=== PATIENT | male | born 1980 | race Two or more races ===

== ENCOUNTER 2023-09-11 19:31 | Inpatient (IN) | payer BC ==
[~2023-09-11] VITALS: Ht 170.2 cm; Wt 110.0 kg
[2023-09-11 20:03] LABS: BASOPHILS % (AUTO) 0.6 % (0-1); EOSINOPHILS # (AUTO) 0.1 X10'3 (0-0.9); EOSINOPHILS % (AUTO) 1.2 % (0-6); HEMATOCRIT 44.6 % (42.0-52.0); HEMOGLOBIN 15.9 g/dl (14.0-17.9); LYMPHOCYTES % (AUTO) 35.3 % (21-51); MEAN CORPUSCULAR HEMOGLOBIN 32.3 PG (27.0-31.0); MEAN CORPUSCULAR HGB CONC 35.6 g/dL (33.0-36.5); MEAN CORPUSCULAR VOLUME 90.9 FL (78-98); MEAN PLATELET VOLUME 7.6 FL (7.4-10.4); MONOCYTES # (AUTO) 0.6 X10'3 (0-0.9); NEUTROPHILS # (AUTO) 4.7 X10'3 (1.8-7.7); NEUTROPHILS % (AUTO) 55.9 % (42-75); PLATELET COUNT 219 X10'3 (140-440); RED BLOOD COUNT 4.91 X10'6 (4.70-6.10); RED CELL DISTRIBUTION WIDTH 13.8 % (11.5-14.5); WHITE BLOOD COUNT 8.4 X10'3 (4.5-11.0)
[2023-09-11 20:20] LABS: ALANINE AMINOTRANSFERASE 47 U/L (12-78); ALBUMIN 3.9 G/DL (3.4-5.0); ALKALINE PHOSPHATASE 108 IU/L (46-116); ANION GAP 8 (8-16); ASPARTATE AMINO TRANSFERASE 19 U/L (10-37); BILIRUBIN,TOTAL 0.4 MG/DL (0.1-1.0); BLOOD UREA NITROGEN 9 MG/DL (7-18); BUN/CREATININE RATIO 10.5 (10.0-20.0); CALCIUM 8.7 MG/DL (8.5-10.1); CHLORIDE 103 MMOL/L (99-107); CREATININE 0.86 MG/DL (0.60-1.10); GLUCOSE 123 MG/DL (70-104); LIPASE 33 U/L (16-77); POTASSIUM 3.4 MMOL/L (3.5-5.1); SODIUM 138 MMOL/L (135-145); TOTAL CARBON DIOXIDE 26.8 MMOL/L (24-32); TOTAL PROTEIN 7.7 G/DL (6.4-8.2); eCRCL 101 ML/MIN; eGFR > 90 ML/MIN
[2023-09-11] MEDS: aspirin 325mg tablet, delayed-release (Ecotrin) PO ONE (20:33)
[2023-09-11 20:38] LABS: PRO BRAIN NATRIURETIC PEPTIDE 72 PG/ML (0-125)
[2023-09-11] MEDS ORDERED: NO HOME MEDS (20:41)
[2023-09-11] MEDS: heparin 10,000 units/1 ML INJ IV ONE ×2 (21:31→21:34)
[2023-09-11] MEDS: heparin 25,000 UNIT/250ml bag 250 ML IV PRN (21:33)
[2023-09-11 21:43] LABS: APTT 31 SECONDS (22-32); INR 1.1 INR
[2023-09-11] MEDS: MESSAGE TO NURSING IV ONE (22:18)
[2023-09-11 22:42] LABS: D-DIMER < 0.19 MG/L FEU (0-0.50)
[2023-09-11 22:52] LABS: BILIRUBIN,URINE NEGATIVE (Neg); CLARITY,URINE CLEAR (Clear); COLOR,URINE STRAW (Yellow); GLUCOSE, URINE NEGATIVE (Neg); KETONES,URINE NEGATIVE (Neg); LEUKOCYTE ESTERASE ,URINE NEGATIVE (Neg); NITRITES, URINE NEGATIVE (Neg); OCCULT BLOOD,URINE NEGATIVE (Neg); PH,URINE 7.5 (4.8-8.0); PROTEIN,URINE NEGATIVE (Neg); UROBILINOGEN,URINE 0.2 E.U/dL (0.2-1.0)
[2023-09-11 22:53] LABS: UA COLLECTION TYPE CLN CATCH MIDSTREAM
[2023-09-12] VITALS (13 sets, daily range): BP systolic 114–156; BP diastolic 65–97; PULSE 60–82; RESP 12–18; TEMP 97.2–97.9; O2SAT 94–99
[2023-09-12] MEDS ORDERED: ondansetron/PF 4mg/2ml inj IV PRN (00:15)
[2023-09-12] MEDS ORDERED: magnesium Cl slow-release 64mg tablet PO PRN (00:15)
[2023-09-12] MEDS ORDERED: potassium Cl 20 mEq SR tablet PO PRN ×2 (00:15)
[2023-09-12] MEDS ORDERED: magnesium hydroxide 30ml (MOM) UD suspension PO PRN (00:15)
[2023-09-12] MEDS ORDERED: morphine 2 MG/ML inj. syringe IV PRN (00:15)
[2023-09-12] MEDS ORDERED: acetaminophen 325mg tablet PO PRN (00:15)
[2023-09-12] MEDS ORDERED: mag hydrox/Alum hydrox/simeth 30ml oral suspension PO PRN (00:15)
[2023-09-12] MEDS ORDERED: nitroGLYCERIN 0.4mg SUBLingual tab SL PRN ×2 (00:30→09:15)
[2023-09-12 04:21] LABS: BASOPHILS % (AUTO) 0.5 % (0-1); EOSINOPHILS # (AUTO) 0.1 X10'3 (0-0.9); EOSINOPHILS % (AUTO) 1.6 % (0-6); HEMATOCRIT 45.1 % (42.0-52.0); HEMOGLOBIN 15.8 g/dl (14.0-17.9); LYMPHOCYTES # (AUTO) 3.1 X10'3 (1.1-4.8); LYMPHOCYTES % (AUTO) 39.8 % (21-51); MEAN CORPUSCULAR HEMOGLOBIN 32.2 PG (27.0-31.0); MEAN CORPUSCULAR VOLUME 91.8 FL (78-98); MEAN PLATELET VOLUME 7.5 FL (7.4-10.4); MONOCYTES # (AUTO) 0.5 X10'3 (0-0.9); MONOCYTES % (AUTO) 6.4 % (2-12); NEUTROPHILS # (AUTO) 4.1 X10'3 (1.8-7.7); NEUTROPHILS % (AUTO) 51.7 % (42-75); PLATELET COUNT 203 X10'3 (140-440); RED BLOOD COUNT 4.91 X10'6 (4.70-6.10); RED CELL DISTRIBUTION WIDTH 13.6 % (11.5-14.5); WHITE BLOOD COUNT 7.8 X10'3 (4.5-11.0)
[2023-09-12 04:35] LABS: INR 1.1 INR; PROTHROMBIN TIME 11.2 SECONDS (9.0-12.0)
[2023-09-12 04:45] LABS: HEMOGLOBIN A1C 5.3 % (4.5-6.2)
[2023-09-12 04:49] LABS: CHOL/HDL RATIO 3.8 (0.00-4.99); CHOLESTEROL 143 MG/DL (0-200); HDL CHOLESTEROL 38 MG/DL (35-60); LDL CHOLESTEROL 85 MG/DL (50-100); MAGNESIUM 1.8 MG/DL (1.5-2.4); PHOSPHORUS 3.4 MG/DL (2.3-4.5); POTASSIUM 3.8 MMOL/L (3.5-5.1); THYROID STIMULATING HORMONE 1.79 ulU/ml (0.34-4.50); TRIGLYCERIDES 110 MG/DL (20-135)
[2023-09-12] MEDS: heparin 10,000 units/1 ML INJ IV PRN (04:51)
[2023-09-12] MEDS: MESSAGE TO NURSING IV ONE ×4 (04:53→23:29)
[2023-09-12 06:55] LABS: FREE T4 (FREE THYROXINE) 0.93 NG/DL (0.73-1.40)
[2023-09-12] MEDS: docusate sod 100mg capsule PO SCH (07:40)
[2023-09-12] MEDS: metoprolol tartrate 25mg tablet PO SCH (07:40)
[2023-09-12] MEDS: aspirin 81mg, enteric-coated 1 TAB TABLET.DR PO SCH (07:40)
[2023-09-12] MEDS: atorvastatin 20mg tablet PO SCH (07:41)
[2023-09-12] MEDS ORDERED: aminophylline 250mg/10ml inj. IV PRN (09:15)
[2023-09-12] MEDS ORDERED: metoprolol tartrate 1mg/ml inj IV PRN (09:15)
[2023-09-12] MEDS: regadenoson 0.4mg/5ml syringe IV PRN (13:02)
[2023-09-13 02:00] VITALS: BP 163/57; PULSE 74; RESP 20; TEMP 97.4; O2SAT 94
[2023-09-13 04:54] LABS: BASOPHILS % (AUTO) 0.5 % (0-1); EOSINOPHILS # (AUTO) 0.1 X10'3 (0-0.9); EOSINOPHILS % (AUTO) 1.5 % (0-6); HEMATOCRIT 46.3 % (42.0-52.0); HEMOGLOBIN 16.2 g/dl (14.0-17.9); LYMPHOCYTES # (AUTO) 2.8 X10'3 (1.1-4.8); LYMPHOCYTES % (AUTO) 37.3 % (21-51); MEAN CORPUSCULAR HEMOGLOBIN 32.4 PG (27.0-31.0); MEAN CORPUSCULAR HGB CONC 34.9 g/dL (33.0-36.5); MEAN CORPUSCULAR VOLUME 92.7 FL (78-98); MEAN PLATELET VOLUME 7.7 FL (7.4-10.4); MONOCYTES # (AUTO) 0.6 X10'3 (0-0.9); MONOCYTES % (AUTO) 7.7 % (2-12); PLATELET COUNT 204 X10'3 (140-440); RED BLOOD COUNT 4.99 X10'6 (4.70-6.10); RED CELL DISTRIBUTION WIDTH 13.7 % (11.5-14.5); WHITE BLOOD COUNT 7.5 X10'3 (4.5-11.0)
[2023-09-13 05:14] LABS: ALANINE AMINOTRANSFERASE 32 U/L (12-78); ALBUMIN 3.5 G/DL (3.4-5.0); ALKALINE PHOSPHATASE 93 IU/L (46-116); ANION GAP 7 (8-16); ASPARTATE AMINO TRANSFERASE 14 U/L (10-37); BILIRUBIN,TOTAL 0.6 MG/DL (0.1-1.0); BLOOD UREA NITROGEN 8 MG/DL (7-18); BUN/CREATININE RATIO 9.9 (10.0-20.0); CALCIUM 8.8 MG/DL (8.5-10.1); CHLORIDE 104 MMOL/L (99-107); CREATININE 0.81 MG/DL (0.60-1.10); GLUCOSE 126 MG/DL (70-104); MAGNESIUM 1.8 MG/DL (1.5-2.4); POTASSIUM 3.6 MMOL/L (3.5-5.1); SODIUM 138 MMOL/L (135-145); TOTAL CARBON DIOXIDE 26.7 MMOL/L (24-32); eCRCL 108 ML/MIN; eGFR > 90 ML/MIN
[2023-09-13 05:23] LABS: INR 1.1 INR; PROTHROMBIN TIME 11.2 SECONDS (9.0-12.0)
[2023-09-13] MEDS: MESSAGE TO NURSING IV ONE ×3 (05:38→17:06)
[2023-09-13 06:00] VITALS: BP 124/70; PULSE 63; RESP 16; TEMP 98; O2SAT 96
[2023-09-13 11:00] VITALS: BP 117/76; PULSE 65; RESP 13; TEMP 98.1; O2SAT 97
[2023-09-13 15:00] VITALS: BP 109/73; PULSE 66; RESP 19; TEMP 97.7; O2SAT 98
[2023-09-13] MEDS ORDERED: ROSU20TA73 PO (15:05)
[2023-09-13] MEDS ORDERED: ASPI-611 PO (15:05)
[2023-09-13] MEDS ORDERED: NITR0.4T48 SL (15:08)
[2023-09-14] MEDS ORDERED: nicotine 7mg patch - 24hr TD SCH (08:00)
== END 2023-09-13 20:30 | disposition home or self-care (01) | DRG 282 ==
LOC: ER 19:32 → ED HOLD 09-12 00:20 → PCU 3S 09-12 01:53
PROVIDERS: ADMIT Internal Medicine Critical Care Medicine; ATTEND Family Medicine
PROC: 4A02XM4 Measurement of Cardiac Total Activity, External Approach (ICD-10-PCS; principal; 2023-09-12)
PROC: 3E033HZ Introduction of Radioactive Substance into Peripheral Vein, Percutaneous Approach (ICD-10-PCS; 2023-09-12)
DX: I21.4 Non-ST elevation (NSTEMI) myocardial infarction (principal); F17.210 Nicotine dependence, cigarettes, uncomplicated; E66.9 Obesity, unspecified; Z68.38 Body mass index [BMI] 38.0-38.9, adult
CPT/HCPCS: 36415; 71045; 76700; 78452; 80053; 80061; 81003; 83036; 83690; 83735; 83880; 84100; 84132; 84439; 84443; 84484; 85025; 85379; 85610; 85730; 87081; 93005; 93017; 93306; 99291; 99292; A9500; G0378; J1644; J2785

== ENCOUNTER 2023-09-14 03:34 | Inpatient (IN) | payer BC ==
[~2023-09-14] VITALS: Ht 167.6 cm; Wt 110.0 kg
[2023-09-14] VITALS (13 sets, daily range): BP systolic 112–168; BP diastolic 62–100; PULSE 55–66; RESP 10–17; TEMP 97.7–98.4; O2SAT 93–96
[~2023-09-14 03:34] MED LIST: ASPI-611 PO; NITR0.4T48 SL; NO HOME MEDS; ROSU20TA73 PO
[2023-09-14 03:53] LABS: BASOPHILS # (AUTO) 0.1 X10'3 (0-0.2); BASOPHILS % (AUTO) 0.7 % (0-1); EOSINOPHILS # (AUTO) 0.1 X10'3 (0-0.9); EOSINOPHILS % (AUTO) 1.1 % (0-6); LYMPHOCYTES # (AUTO) 3.5 X10'3 (1.1-4.8); LYMPHOCYTES % (AUTO) 34.9 % (21-51); MEAN CORPUSCULAR HEMOGLOBIN 31.7 PG (27.0-31.0); MEAN CORPUSCULAR HGB CONC 34.7 g/dL (33.0-36.5); MEAN CORPUSCULAR VOLUME 91.4 FL (78-98); MEAN PLATELET VOLUME 7.5 FL (7.4-10.4); MONOCYTES % (AUTO) 9.9 % (2-12); NEUTROPHILS # (AUTO) 5.3 X10'3 (1.8-7.7); NEUTROPHILS % (AUTO) 53.4 % (42-75); PLATELET COUNT 226 X10'3 (140-440); RED BLOOD COUNT 5.36 X10'6 (4.70-6.10); RED CELL DISTRIBUTION WIDTH 13.5 % (11.5-14.5); WHITE BLOOD COUNT 9.9 X10'3 (4.5-11.0)
[2023-09-14 04:05] LABS: APTT 30 SECONDS (22-32); PROTHROMBIN TIME 10.9 SECONDS (9.0-12.0)
[2023-09-14 04:13] LABS: ANION GAP 10 (8-16); BLOOD UREA NITROGEN 12 MG/DL (7-18); BUN/CREATININE RATIO 12.9 (10.0-20.0); CALCIUM 9.1 MG/DL (8.5-10.1); CHLORIDE 101 MMOL/L (99-107); CREATININE 0.93 MG/DL (0.60-1.10); GLUCOSE 143 MG/DL (70-104); MAGNESIUM 1.9 MG/DL (1.5-2.4); POTASSIUM 3.3 MMOL/L (3.5-5.1); PRO BRAIN NATRIURETIC PEPTIDE 34 PG/ML (0-125); SODIUM 138 MMOL/L (135-145); TOTAL CARBON DIOXIDE 27.1 MMOL/L (24-32); eCRCL 91 ML/MIN; eGFR 88 ML/MIN
[2023-09-14] MEDS: normal saline 1000ml 1,000 ML IV ONE (04:14)
[2023-09-14] MEDS: nitroGLYCERIN 0.2mg/hour patch TD ONE (04:14)
[2023-09-14] MEDS: aspirin 81mg tab.chew PO ONE (04:14)
[2023-09-14] MEDS ORDERED: heparin 25,000 UNIT/250ml bag 250 ML IV PRN (04:20)
[2023-09-14] MEDS: heparin 10,000 units/1 ML INJ IV ONE (04:20)
[2023-09-14] MEDS ORDERED: magnesium hydroxide 30ml (MOM) UD suspension PO PRN (04:40)
[2023-09-14] MEDS ORDERED: morphine 2 MG/ML inj. syringe IV PRN ×3 (04:40→05:05)
[2023-09-14] MEDS ORDERED: magnesium sulf-water 4G/100mL 100 ML IV PRN (04:40)
[2023-09-14] MEDS ORDERED: ondansetron/PF 4mg/2ml inj IV PRN (04:40)
[2023-09-14] MEDS ORDERED: mag hydrox/Alum hydrox/simeth 30ml oral suspension PO PRN (04:40)
[2023-09-14] MEDS ORDERED: heparin 10,000 units/1 ML INJ IV PRN (04:40)
[2023-09-14] MEDS ORDERED: acetaminophen 325mg tablet PO PRN (04:40)
[2023-09-14] MEDS ORDERED: potassium Cl 20 mEq SR tablet PO PRN ×2 (04:40)
[2023-09-14] MEDS ORDERED: potassium Cl 40MEQ/1/2NS 520ml 520 ML IV PRN (04:40)
[2023-09-14] MEDS ORDERED: magnesium Cl slow-release 64mg tablet PO PRN (04:40)
[2023-09-14] MEDS ORDERED: MESSAGE TO NURSING IV ONE (04:45)
[2023-09-14] MEDS: heparin 10,000 units/1 ML INJ IV SCH (05:05)
[2023-09-14] MEDS: metoprolol tartrate 50mg tablet PO ONE (05:17)
[2023-09-14] MEDS: aspirin 325mg tablet, delayed-release (Ecotrin) PO ONE (05:17)
[2023-09-14] MEDS: normal saline 1000ml 1,000 ML IV SCH (05:18)
[2023-09-14 05:36] LABS: BILIRUBIN,URINE NEGATIVE (Neg); CLARITY,URINE CLEAR (Clear); COLOR,URINE STRAW (Yellow); GLUCOSE, URINE NEGATIVE (Neg); KETONES,URINE NEGATIVE (Neg); LEUKOCYTE ESTERASE ,URINE NEGATIVE (Neg); NITRITES, URINE NEGATIVE (Neg); OCCULT BLOOD,URINE TRACE-INTACT (Neg); PH,URINE 5.5 (4.8-8.0); PROTEIN,URINE NEGATIVE (Neg); UROBILINOGEN,URINE 0.2 E.U/dL (0.2-1.0)
[2023-09-14 05:40] LABS: UA COLLECTION TYPE URINAL
[2023-09-14 05:48] LABS: BACTERIA,URINE FEW /HPF (Neg); RBC,URINE 0-2 /HPF (0-2); SQUAMOUS EPITHELIAL CELL,UR FEW /LPF (FEW); WBC,URINE 0-4 /HPF (0-4)
[2023-09-14] MEDS: morphine 4 MG/ML inj SYRINge IV ONE (05:54)
[2023-09-14 06:00] LABS: URINE AMPHETAMINE SCREEN NEGATIVE (Neg); URINE BARBITUATE SCREEN NEGATIVE (Neg); URINE BENZODIAZEPINES SCREEN NEGATIVE (Neg); URINE CANNABINOID SCREEN POSITIVE (Neg); URINE COCAINE SCREEN NEGATIVE (Neg); URINE METHADONE SCREEN NEGATIVE (Neg); URINE OPIATE SCREEN NEGATIVE (Neg); URINE PHENCYCLIDINE SCREEN NEGATIVE (Neg)
[2023-09-14] MEDS: docusate sod 100mg capsule PO SCH (08:00)
[2023-09-14] MEDS: heparin, porcine 5000 units/ml vial SQ SCH (08:47)
[2023-09-14] MEDS ORDERED: iohexol 350MG/ML 100ml bottle IV ONE ×4 (08:50→13:29)
[2023-09-14] MEDS ORDERED: verapamil 2.5 mg/ml inj IV ONE (11:55)
[2023-09-14] MEDS ORDERED: nitroGLYCERIN 500mcg/5mL D5W 0 ML IV ONE (11:55)
[2023-09-14] MEDS ORDERED: LIDOcaine 1% (10mg/ml) 2ml vial ONE (11:55)
[2023-09-14] MEDS ORDERED: midazolam 1 mg/ML 2ml injection ONE ×2 (12:15→12:52)
[2023-09-14] MEDS ORDERED: heparin 1,000unit/ml 10ml vial 10 ML ONE ×2 (12:15→12:58)
[2023-09-14] MEDS ORDERED: fentaNYL/PF 50MCG/1 ML 2ML syringe ONE (12:15)
[2023-09-14] MEDS ORDERED: ticagrelor 90mg tablet ONE (13:24)
[2023-09-14] MEDS ORDERED: aspirin 325mg tablet ONE (13:24)
[2023-09-14] MEDS ORDERED: ondansetron/PF 4mg/2ml inj ONE (13:40)
[2023-09-14] MEDS ORDERED: atropine 0.1mg/ml 10ml syringe ONE (13:41)
[2023-09-14] MEDS ORDERED: nitroGLYCERIN 500mcg/5mL D5W 5 ML IV ONE (13:44)
[2023-09-14] MEDS ORDERED: iohexol 350 MG/ML 50ML vial IV ONE (13:49)
[2023-09-14] MEDS: metoprolol succinate 25mg (24-HOUR) SR. Tablet PO SCH (20:20)
[2023-09-15 02:00] VITALS: BP 122/71; PULSE 82; RESP 18; TEMP 97.9; O2SAT 97
[2023-09-15 06:58] LABS: BASOPHILS % (AUTO) 0.1 % (0-1); EOSINOPHILS # (AUTO) 0.1 X10'3 (0-0.9); EOSINOPHILS % (AUTO) 0.7 % (0-6); HEMOGLOBIN 16.3 g/dl (14.0-17.9); LYMPHOCYTES # (AUTO) 2.4 X10'3 (1.1-4.8); LYMPHOCYTES % (AUTO) 23.6 % (21-51); MEAN CORPUSCULAR HEMOGLOBIN 32.6 PG (27.0-31.0); MEAN CORPUSCULAR HGB CONC 35.4 g/dL (33.0-36.5); MEAN CORPUSCULAR VOLUME 92.1 FL (78-98); MEAN PLATELET VOLUME 7.9 FL (7.4-10.4); MONOCYTES # (AUTO) 0.7 X10'3 (0-0.9); MONOCYTES % (AUTO) 6.8 % (2-12); NEUTROPHILS # (AUTO) 6.9 X10'3 (1.8-7.7); NEUTROPHILS % (AUTO) 68.8 % (42-75); PLATELET COUNT 208 X10'3 (140-440); RED CELL DISTRIBUTION WIDTH 13.6 % (11.5-14.5)
[2023-09-15] MEDS: atorvastatin 20mg tablet PO SCH (07:15)
[2023-09-15] MEDS: aspirin 81mg, enteric-coated 1 TAB TABLET.DR PO SCH (07:15)
[2023-09-15] MEDS: ticagrelor 90mg tablet PO SCH (07:16)
[2023-09-15 07:23] VITALS: BP 120/66; PULSE 67; RESP 19; TEMP 97.3; O2SAT 99
[2023-09-15 07:27] LABS: ALANINE AMINOTRANSFERASE 40 U/L (12-78); ALBUMIN 3.6 G/DL (3.4-5.0); ALKALINE PHOSPHATASE 101 IU/L (46-116); ANION GAP 7 (8-16); ASPARTATE AMINO TRANSFERASE 41 U/L (10-37); BILIRUBIN,TOTAL 0.7 MG/DL (0.1-1.0); BLOOD UREA NITROGEN 7 MG/DL (7-18); CALCIUM 8.6 MG/DL (8.5-10.1); CHLORIDE 105 MMOL/L (99-107); CREATININE 0.78 MG/DL (0.60-1.10); GLUCOSE 107 MG/DL (70-104); POTASSIUM 3.7 MMOL/L (3.5-5.1); SODIUM 137 MMOL/L (135-145); TOTAL CARBON DIOXIDE 25.2 MMOL/L (24-32); TOTAL PROTEIN 7.2 G/DL (6.4-8.2); eCRCL 108 ML/MIN; eGFR > 90 ML/MIN
[2023-09-15 08:10] VITALS: RESP 19; O2SAT 99
[2023-09-15] MEDS ORDERED: METO-395 PO (09:50)
[2023-09-15] MEDS ORDERED: TICA90TA PO (09:50)
== END 2023-09-15 10:26 | disposition home or self-care (01) | DRG 322 ==
LOC: ER 03:35 → ED HOLD 04:40 → EDBEDREQ 07:17 → PCU 3S 10:17
PROVIDERS: ADMIT Internal Medicine Critical Care Medicine; ATTEND Internal Medicine
PROC: 4A023N7 Measurement of Cardiac Sampling and Pressure, Left Heart, Percutaneous Approach (ICD-10-PCS; principal; 2023-09-14)
PROC: 027135Z Dilation of Coronary Artery, Two Arteries with Two Drug-eluting Intraluminal Devices, Percutaneous Approach (ICD-10-PCS; 2023-09-14)
PROC: B2111ZZ Fluoroscopy of Multiple Coronary Arteries using Low Osmolar Contrast (ICD-10-PCS; 2023-09-14)
DX: I21.4 Non-ST elevation (NSTEMI) myocardial infarction (principal); I25.110 Atherosclerotic heart disease of native coronary artery with unstable angina pectoris; R07.89 Other chest pain; E78.5 Hyperlipidemia, unspecified; I73.9 Peripheral vascular disease, unspecified; I25.2 Old myocardial infarction; Z87.891 Personal history of nicotine dependence; Z98.61 Coronary angioplasty status
CPT/HCPCS: 93458; 99291; C9600; 36415; 71045; 71275; 80048; 80053; 80305; 81001; 83735; 83880; 84132; 84484; 85025; 85610; 85730; 93005; 99152; 99153; A4333; C1725; C1751; C1769; C1874; C1894; G0378; J0461; J1644; J2250; J2270; J2405; J3010; J3490; J7030; Q9967